=== PATIENT | male | born 1955 | race Asian ===

== ENCOUNTER 2022-12-13 16:30 | Inpatient (IN) | payer OTHER ==
[~2022-12-13] VITALS: Ht 157.5 cm; Wt 47.2 kg
--- NOTE | 2022-12-13 16:40 | NUR ---
RECIVED PT 67 YRS MALE TRANSFER FROM [facility] after completed TX FOR evaluation unable to tacare of him self
--- NOTE | 2022-12-13 16:50 | NUR ---
at bed side
--- NOTE | 2022-12-13 17:00 | NUR ---
PT confused try to GOT out of BED sitter at bed side
--- NOTE | 2022-12-13 17:30 | NUR ---
I&o catheter done UA sent to lab and COVID SWAP SENT TO LAB
[2022-12-13] MEDS ORDERED: diphenhydrAMINE HCL 50 MG/ML VIAL ONE (17:56)
[2022-12-13] MEDS ORDERED: OLANZAPINE 10 MG VIAL IM ONE ×2 (17:56→18:00)
[2022-12-13] MEDS ORDERED: diphenhydrAMINE HCL 50 MG/ML VIAL IM ONE (18:00)
[2022-12-13 18:05] LABS: BASOPHILS # (AUTO) 0.1 K/uL (0.0-0.2); BASOPHILS % (AUTO) 0.5 % (0.0-2.0); EOSINOPHILS % (AUTO) 0.3 % (0.0-6.0); HEMATOCRIT 40 % (39-51); HEMOGLOBIN 12.5 g/dL (13.5-17.5); LYMPHOCYTES # (AUTO) 2.3 K/uL (0.8-4.8); LYMPHOCYTES % (AUTO) 19.8 % (20.0-44.0); MEAN CORPUSCULAR HGB CONC 31 g/dl (31.0-36.0); MEAN CORPUSCULAR VOLUME 81 fL (80-96); MONOCYTES # (AUTO) 0.6 K/uL (0.1-1.30); MONOCYTES % (AUTO) 5.4 % (2.0-12.0); NEUTROPHILS # (AUTO) 8.7 K/uL (1.8-8.9); PLATELET COUNT (AUTO) 549 K/uL (150-450); WHITE BLOOD COUNT (AUTO) 11.8 K/uL (4.3-11.0)
[2022-12-13 18:26] LABS: CALCIUM, SERUM 9.3 mg/dL (8.5-10.1); CARBON DIOXIDE 22 mmol/L (21-32); CHLORIDE 96 mmol/L (98-107); CREATININE 0.9 mg/dL (0.6-1.3); GLUCOSE 113 mg/dL (74-106); POTASSIUM 3.9 mmol/L (3.5-5.1); SODIUM SERUM 133 mmol/L (136-145); UREA NITROGEN, BLOOD 23 mg/dL (7-18)
[2022-12-13 18:39] LABS: ALANINE AMINOTRANSFERASE 46 U/L (12-78); ALBUMIN 3.7 g/dL (3.4-5.0); ALKALINE PHOSPHATASE 257 U/L (46-116); ASPARTATE AMINOTRANSFERASE 78 U/L (15-37); BILIRUBIN,DIRECT 0.3 mg/dL (0.0-0.2); BILIRUBIN,TOTAL 0.8 mg/dL (0.2-1.0); TOTAL PROTEIN, SERUM 7.8 g/dL (6.4-8.2)
--- NOTE | 2022-12-13 18:52 | NUR ---
PT CONFUSED AND High risk fall
[2022-12-13] MEDS ORDERED: IV NS 0.9% 1,000 ML IV ONE (19:00)
--- NOTE | 2022-12-13 19:26 | NUR ---
SUSHIL LLAMAS RN
--- NOTE | 2022-12-13 21:45 | NUR ---
CALLED ESTEPHANIE JOE REGARDING D/C AWAITING CALL BACK FROM BARTOLOME GALINDO GRINDER OPERATOR SURFACE TOOL
--- NOTE | 2022-12-13 21:51 | NUR ---
[facility] CALLED FOR BLS GOING BACK TO SNF PER JOEL ETA 1 HOUR
--- NOTE | 2022-12-13 22:00 | NUR ---
JOSE FROM [facility] CALLED BACK THAT PT IS STILL TO BE ADMITTED BUT SINCE PATIENT IS COVID POSITIVE HE WONT BE ADMITTED BECAUSE THEY DONT HAVE AN ISOLATION ROOM.
[2022-12-13] MEDS ORDERED: LIDOCAINE 2%-EPI 1:100,000 30 ML VIAL ONE (22:16)
[2022-12-13] MEDS ORDERED: HALOPERIDOL LACTATE INJ 5 MG/ML VIAL ONE (22:17)
[2022-12-13] MEDS ORDERED: LORAZEPAM INJ 2 MG/ML VIAL ONE (22:18)
[2022-12-13] MEDS ORDERED: LORAZEPAM INJ 2 MG/ML VIAL IV ONE (22:30)
[2022-12-13] MEDS ORDERED: LIDOCAINE 1%-EPI 1:100,000 20 ML VIAL TP ONE (22:30)
[2022-12-13] MEDS ORDERED: HALOPERIDOL LACTATE INJ 5 MG/ML VIAL IM ONE (22:30)
--- NOTE | 2022-12-13 22:44 | NUR ---
DR DORI HU AT PT'S BEDSIDE FOR SUTURES LAC TO FOREHEAD
[2022-12-14] MEDS ORDERED: IV NS 0.9% 1,000 ML IV PRN (02:00)
[2022-12-14] MEDS ORDERED: Z GUARD REMEDY 4 OZ OINT TP PRN (02:00)
[2022-12-14] MEDS ORDERED: MAG HYDROX/AL HYDROX/SIMETH 30 ML UDC PO PRN (02:00)
[2022-12-14] MEDS ORDERED: TEMAZEPAM 15 MG CAPSULE PO PRN (02:00)
[2022-12-14] MEDS ORDERED: ONDANSETRON HCL/PF 4 MG/2 ML VIAL IVP PRN (02:00)
[2022-12-14] MEDS ORDERED: MAGNESIUM HYDROXIDE 30 ML UDC PO PRN (02:00)
--- NOTE | 2022-12-14 03:35 | NUR ---
REPORT GIVEN TO ALCIRA GALINDO
--- NOTE | 2022-12-14 03:52 | NUR ---
PT TRANSFERRING TO [facility]IA [facility] PROTOCOL. VSS. ALL BELONGINGS WITH PT
--- NOTE | 2022-12-14 04:36 | NUR ---
SUPERVISOR OFFSET PLATE PREPARATIONPRINT PRODUCTION MANAGER NOTES: RECEIVED PATIENT FROM ER VIA [facility] ON STABLE CONDITION, PLACED COMFORTABLY IN ROOM , V/S ARE WITHIN NORMAL RANGE, PATIENT WAS SLEEPY AND UNABLE TO RESPONSE TO QUESTION, SKIN ASSESSMENT DONE AND DOCUMENTED, INVENTORIES DONE, PATIENT ON TELE MONITOR SR-80 NO SYMPTOMS WAS OBSERVED, IV LINE AT PLC793 WITH ONGOING 0.9NSS@75ML/HR INFUSING WELL, PATIENT KEPT CLEAN AND DRY ALL NEEDS MET ON MIONITORING DUE TO RISK FOR FALL, WILL CONTINUE TO MONITOR.
[2022-12-14 04:40] VITALS: BP 155/89
--- NOTE | 2022-12-14 06:28 | NUR ---
PLUMBER GASFITTER CLOSING NOTES: PATIENT SLEEP IN BED COMFORTABLY, BED IN LOW POSITION CALL LIGHTS WITHIN REACH, NO COMPLAIN OF PAIN AND DISCOMFORT AT THIS TIME, ON ROOM AIR SATURATING WELL, PATIENT IS SLEEPY BUT AROUSABLE TO TACTILE STIMULI, ON TELE MONITOR- SR-78, PATIENT ON MONITOR DUE TO RISK OF FALL, PATIENT KEPT CLEAN AND DRY ALL NEEDS MET ENDORSE TO INCOMING SHIFT.
--- NOTE | 2022-12-14 07:25 | NUR ---
RN OPENING NOTE PT ALERT AND ORIENTED X1. PT IS CONFUSED, RESTLESS AT TIMES. PT ON ROOM AIR TOLERATING AT 100%. PT ON TELE MONITOR SINUS RHYTM. ALL SAFETY MEASURES IN PLACE. CALL LIGHT WITHIN REACH. BED LOCKED AT LOWEST POSITION.BED ALARM ON. SIDE RAILS UP X4.PT IS HIGH RISK FOR FALLS.
[2022-12-14] MEDS: PANTOPRAZOLE 40 MG TABLET.DR PO SCH (07:30)
[2022-12-14 08:00] VITALS: BP 125/82
[2022-12-14] MEDS: QUETIAPINE FUMARATE 25 MG TABLET PO SCH ×2 (09:00→16:18)
[2022-12-14] MEDS ORDERED: DASA70TA PO (09:10)
[2022-12-14] MEDS ORDERED: MELA5TAB PO (09:10)
[2022-12-14] MEDS ORDERED: CABO40TA PO (09:10)
[2022-12-14] MEDS ORDERED: LEVE500T20 PO (09:10)
[2022-12-14] MEDS ORDERED: METF-440 PO (09:10)
[2022-12-14] MEDS ORDERED: ACET325T53 PO (09:10)
[2022-12-14] MEDS ORDERED: CHOL200013 PO (09:10)
[2022-12-14] MEDS ORDERED: OMEP40CA21 PO (09:10)
[2022-12-14] MEDS ORDERED: ATOR20TA PO (09:10)
[2022-12-14] MEDS ORDERED: DEXA4TAB PO (09:10)
--- NOTE | 2022-12-14 11:20 | NUR ---
SS Note: SS consult requested for SNF placement. Per case management note pt. will be discharging to [facility] when medically cleared. Cm to follow up with transportation arrangements.
[2022-12-14 12:00] VITALS: BP 176/132
--- NOTE | 2022-12-14 12:00 | NUR ---
rn note notified of high bp 172/114. aware asked for restraints.
[2022-12-14 16:00] VITALS: BP_SYST 151; BP_SYST 176; BP_DIAS 132; BP_DIAS 86
--- NOTE | 2022-12-14 16:00 | NUR ---
rn note notified of high bp 172/114. no orders given at this time
--- NOTE | 2022-12-14 18:30 | NUR ---
RN NOTE NOTIFIED DR. SIFUENTES THAT PT IS CONFUSED,RESTLESS, TRIES TO GET OUT OF BED AND IF RESTRAINTS CAN BE ORDERED. RECOMMENDED SITTER. CALLED NURSING MATERIAL ATTENDANT. SITTER IS NOT AVAILABLE AT THIS TIME. RELAYED TO DR. SIFUENTES AND ASKED IF RESTRAINTS OKAY TO ORDER. SAID OK TO ORDER SOFT BILATERAL WRIST RESTRAINTS.
--- NOTE | 2022-12-14 19:40 | NUR ---
RN NOTE NOTIFIED DR. SIFUENTES OF C REACTIVE PROTEIN 6.3 MD AWARE
[2022-12-14 20:00] VITALS: BP 142/83
--- NOTE | 2022-12-14 20:00 | NUR ---
RN CLOSING NOTE PT ASLEEP, EASILY AROUSABLE. alert abnd oriented x1. pt is confused and restless at times.PT ON TELE MONITOR SR. PT IS ON SOFT BILATERAL WRIST RESTRAINTS. NO SKIN OR CIRCULATION ISSUES NOTED AT THIS TIME. PT HAS LEFT IV. IV INTACT, PATENT AND FLUSHING WELL. ALL SAFETY MEASURES IN PLACE. CALL LIGHT WITHIN REACH. pt is currently npo due to high risk for falls and altered level of consciousness. BED LOCKED AT LOWEST POSITION. SIDE RAILS UP X4.bed alarm on. PT IS COVID ISOLATION. PT IS HIGH RISK FOR FALLS.
[2022-12-15 04:00] VITALS: BP 143/87
[2022-12-15] MEDS: PANTOPRAZOLE 40 MG TABLET.DR PO SCH ×2 (07:30→07:35)
[2022-12-15 07:41] LABS: BASOPHILS % (AUTO) 0.3 % (0.0-2.0); EOSINOPHILS % (AUTO) 2.1 % (0.0-6.0); HEMATOCRIT 34 % (39-51); HEMOGLOBIN 10.5 g/dL (13.5-17.5); LYMPHOCYTES # (AUTO) 1.3 K/uL (0.8-4.8); LYMPHOCYTES % (AUTO) 10.6 % (20.0-44.0); MEAN CORPUSCULAR HGB CONC 31 g/dl (31.0-36.0); MEAN CORPUSCULAR VOLUME 83 fL (80-96); MONOCYTES # (AUTO) 0.7 K/uL (0.1-1.30); MONOCYTES % (AUTO) 5.6 % (2.0-12.0); NEUTROPHILS # (AUTO) 10.2 K/uL (1.8-8.9); NEUTROPHILS % (AUTO) 81.4 % (43.0-81.0); PLATELET COUNT (AUTO) 387 K/uL (150-450); RED BLOOD CELL COUNT(AUTO) 4.04 MIL/uL (4.5-6.0); WHITE BLOOD COUNT (AUTO) 12.6 K/uL (4.3-11.0)
[2022-12-15 08:00] VITALS: BP 164/93
[2022-12-15] MEDS: QUETIAPINE FUMARATE 25 MG TABLET PO SCH ×3 (08:09→16:53)
[2022-12-15 08:17] LABS: CREATININE 0.5 mg/dL (0.6-1.3); MAGNESIUM 2.3 mg/dL (1.8-2.4); PHOSPHORUS 2.2 mg/dL (2.5-4.9)
[2022-12-15 08:24] LABS: CALCIUM, SERUM 8.1 mg/dL (8.5-10.1)
--- NOTE | 2022-12-15 09:00 | NUR ---
NPO DUE TO PATIENT HAS NO GAG REFLEX PER SPEECH THERAPIST THAT DID SWALLOW EVALUATION. NOTIFIED CHARGE NURSE AND MD AWARE, ST RECOMMENDED TO HAVE ANOTHER TEST TOMORROW
[2022-12-15 12:00] VITALS: BP 134/77
[2022-12-15] MEDS: IV D5/ 0.9% NACL 1,000 ML IV PRN (12:09)
--- NOTE | 2022-12-15 14:26 | NUR ---
CHECK BLOOD SUGAR 69, RECHECKED AFTER 5 MINUTES , BLOOD SUGAR 100.
[2022-12-15 16:00] VITALS: BP 146/80
[2022-12-15] MEDS ORDERED: Sodium Phosphate 15 MMOL in IV NS 0.9% 245 ML IV SCH (16:30)
--- NOTE | 2022-12-15 19:30 | NUR ---
DIAMOND DIE DRILLER OPENING NOTE PATIENT SLEEPING IN BED, PATIENT AROUSABLE, A/O X 0-1, PORTUGUESE SPEAKING. PATIENT STABLE ON RA, NO S/S OF DISTRESS OR SOB NOTED, BREATHING EVEN AND UNLABORED. PATIENT ON EXTERNAL RELEASE ENGINEER READING SINUS RHYTHM, HR: 67. BILATERAL SOFT WRIST RESTRAINTS IN PLACE, RELEASED AND CHECKED CIRCULATION. PATIENT NPO D/T FAILING SWALLOW EVAL. IV ACCESS ON LFA #20G INTACT AND INFUSING D5NS @ 75 ML/HR. SAFETY MEASURES IN PLACE: CALL LIGHT WITHIN REACH, SIDE RAILS UP X 3, BED LOCKED IN LOWEST POSITION, HOB ELEVATED, BED ALARM ON. DROPLET PRECAUTIONS IN PLACE. WILL CONTINUE TO MONITOR PATIENT
--- NOTE | 2022-12-15 19:41 | NUR ---
PATIENT IS AWAKE, ALERT
[2022-12-15 20:00] VITALS: BP 159/84
[2022-12-15] MEDS ORDERED: DEXTROSE 50%-WATER 50 ML DISP.SYRIN IV PRN (22:30)
[2022-12-16] VITALS: BP 152/79
[2022-12-16] MEDS: BLOOD SUGAR DIAGNOSTIC 1 EACH STRIP IN SCH ×4 (00:24→17:32)
[2022-12-16] MEDS: IV D5/ 0.9% NACL 1,000 ML IV PRN ×2 (02:07→16:01)
[2022-12-16 04:00] VITALS: BP 152/72
--- NOTE | 2022-12-16 06:11 | NUR ---
MACHINE LEARNING INTERN CLOSING NOTE PATIENT SLEEPING IN BED, PATIENT AROUSABLE, A/O X 0-1, MACEDONIAN SPEAKING. PATIENT STABLE ON RA, NO S/S OF DISTRESS OR SOB NOTED, BREATHING EVEN AND UNLABORED. PATIENT ON EXTERNAL ADJUNCT FACULTY FOR MEDICAL TERMINOLOGY READING SINUS RHYTHM, HR: 71. BILATERAL SOFT WRIST RESTRAINTS IN PLACE, RELEASED AND CHECKED CIRCULATION. PATIENT KEPT NPO D/T FAILING SWALLOW EVAL, BLOOD SUGAR WNL THIS SHIFT. IV ACCESS ON LFA #20G INTACT AND INFUSING D5NS @ 75 ML/HR. NO SIGNIFICANT CHANGES THIS SHIFT, PT SLEPT WELL THROUGHOUT THE NIGHT. SAFETY MEASURES IN PLACE: CALL LIGHT WITHIN REACH, SIDE RAILS UP X 3, BED LOCKED IN LOWEST POSITION, HOB ELEVATED, BED ALARM ON. DROPLET PRECAUTIONS IN PLACE. WILL ENDORSE TO DAYSHIFT RN FOR CONTINUITY OF CARE
[2022-12-16] MEDS: PANTOPRAZOLE 40 MG TABLET.DR PO SCH (07:30)
--- NOTE | 2022-12-16 07:48 | NUR ---
PATIENT STILL NPO INCLUDING MEDICATIONS
[2022-12-16 08:00] VITALS: BP 159/77
[2022-12-16] MEDS: QUETIAPINE FUMARATE 25 MG TABLET PO SCH ×2 (09:00→16:47)
[2022-12-16 09:07] LABS: BASOPHILS # (AUTO) 0.1 K/uL (0.0-0.2); BASOPHILS % (AUTO) 0.4 % (0.0-2.0); EOSINOPHILS % (AUTO) 2.7 % (0.0-6.0); HEMATOCRIT 36 % (39-51); HEMOGLOBIN 11.4 g/dL (13.5-17.5); LYMPHOCYTES % (AUTO) 8.8 % (20.0-44.0); MEAN CORPUSCULAR HGB CONC 32 g/dl (31.0-36.0); MEAN CORPUSCULAR VOLUME 82 fL (80-96); MONOCYTES # (AUTO) 0.7 K/uL (0.1-1.30); MONOCYTES % (AUTO) 5.9 % (2.0-12.0); NEUTROPHILS # (AUTO) 9.6 K/uL (1.8-8.9); NEUTROPHILS % (AUTO) 82.2 % (43.0-81.0); PLATELET COUNT (AUTO) 400 K/uL (150-450); RED BLOOD CELL COUNT(AUTO) 4.38 MIL/uL (4.5-6.0); WHITE BLOOD COUNT (AUTO) 11.7 K/uL (4.3-11.0)
[2022-12-16 09:09] LABS: CREATININE 0.4 mg/dL (0.6-1.3); MAGNESIUM 2.1 mg/dL (1.8-2.4); PHOSPHORUS 1.8 mg/dL (2.5-4.9); POTASSIUM 3.2 mmol/L (3.5-5.1)
--- NOTE | 2022-12-16 10:30 | NUR ---
OPENING NOTE PATIENT SLEEPING IN BED, PATIENT AROUSABLE, A/O X 0-1, MALTESE SPEAKING. PATIENT STABLE ON RA, NO S/S OF DISTRESS OR SOB NOTED, BREATHING EVEN AND UNLABORED. PATIENT ON EXTERNAL TOOL SHAPER SETUP OPERATOR READING, BILATERAL SOFT WRIST RESTRAINTS IN PLACE, RELEASED AND CHECKED CIRCULATION. PATIENT NPO D/T FAILING SWALLOW EVAL. IV ACCESS ON LFA #20G INTACT AND INFUSING D5NS @ 75 ML/HR. SAFETY MEASURES IN PLACE: CALL LIGHT WITHIN REACH, SIDE RAILS UP X 3, BED LOCKED IN LOWEST POSITION, HOB ELEVATED, BED ALARM ON. DROPLET PRECAUTIONS IN
--- NOTE | 2022-12-16 10:56 | NUR ---
INFORMED DR SIFUENTES REGARDING K-3.2 TODAY.
[2022-12-16 12:00] VITALS: BP 149/70
[2022-12-16 16:00] VITALS: BP 152/75
[2022-12-16] MEDS ORDERED: Sodium Phosphate 15 MMOL in IV NS 0.9% 245 ML IV SCH (16:30)
--- NOTE | 2022-12-16 19:00 | NUR ---
PATIENT IS RESTING IN BED COMFORTABLE, VITAL SIGNS ARE STABLE, PT IS CONFUSE, NO SIGNS OF IN DISTRESS, UNLABORED BREATHING ON ROOM AIR, SOFT BILATERAL RESTRAINTS ARE ON, SAFETY MEASURES APPLIED, BED IN LOW POSITION, SIDE RAILS UPX2, CALL LIGHT WITHIN REACH.
[2022-12-16 20:00] VITALS: BP 123/56
[2022-12-16] MEDS: POTASSIUM CL. PREMIX PERIPHER. 50 ML IV SCH ×3 (21:03→23:06)
[2022-12-17] VITALS: BP 136/88
[2022-12-17] MEDS: POTASSIUM CL. PREMIX PERIPHER. 50 ML IV SCH ×3 (00:16→13:26)
[2022-12-17] MEDS: BLOOD SUGAR DIAGNOSTIC 1 EACH STRIP IN SCH ×5 (00:16→23:49)
[2022-12-17 04:00] VITALS: BP 142/78
[2022-12-17 06:28] LABS: BASOPHILS # (AUTO) 0.1 K/uL (0.0-0.2); BASOPHILS % (AUTO) 0.5 % (0.0-2.0); EOSINOPHILS % (AUTO) 2.8 % (0.0-6.0); HEMATOCRIT 32 % (39-51); HEMOGLOBIN 10.6 g/dL (13.5-17.5); LYMPHOCYTES # (AUTO) 0.7 K/uL (0.8-4.8); LYMPHOCYTES % (AUTO) 6.3 % (20.0-44.0); MEAN CORPUSCULAR HGB CONC 33 g/dl (31.0-36.0); MEAN CORPUSCULAR VOLUME 80 fL (80-96); MONOCYTES # (AUTO) 0.5 K/uL (0.1-1.30); NEUTROPHILS # (AUTO) 9.4 K/uL (1.8-8.9); NEUTROPHILS % (AUTO) 85.4 % (43.0-81.0); PLATELET COUNT (AUTO) 395 K/uL (150-450)
[2022-12-17 06:40] LABS: CREATININE 0.4 mg/dL (0.6-1.3); POTASSIUM 3.4 mmol/L (3.5-5.1)
--- NOTE | 2022-12-17 07:17 | NUR ---
PACKAGE COLLECTOR OPENING NOTES: RECEIVED PATIENT IN BED, ASLEEP BUT EASILY AROUSES TO VOICE AND TACTILE STIMULI. PATIENT IS ALERT BUT WITH PERIODS OF CONFUSION. NO SOB NOTED, BREATHING EVEN AND UNLABORED. ON RA WITH OXYGEN SATURATION OF 99%. ON SR WITH HR OF 91 PER TELE MONITOR. IV FLUID RUNNING ON LEFT FOREARM OF D5NS @ 75 ML/HR, NO S/S INFILTRATION AND NO REDNESS NOTED ON THE SITE. DRESSING ON LEFT FOREHEAD INTACT, DRESSING CLEAN AND DRY. NOTED WITH BILATERAL SOFT WRIST RESTRAINTS, NOTED WITH GOOD HAND CIRCULATION AND GOOD CAPILLARY REFILL. ALL SAFETY MEASURES IN PLACE. BED LOCKED AND IN LOWEST POSITION WITH BED ALARM ON. CALL LIGHT WITHIN REACH. WILL CONTINUE TO MONITOR PATIENT THROUGHOUT SHIFT.
[2022-12-17 08:00] VITALS: BP 146/78
[2022-12-17] MEDS: PANTOPRAZOLE 40 MG VIAL IV SCH (08:57)
[2022-12-17] MEDS: QUETIAPINE FUMARATE 25 MG TABLET PO SCH ×2 (09:00→17:00)
[2022-12-17 12:00] VITALS: BP 133/67
--- NOTE | 2022-12-17 12:00 | NUR ---
THOMAS SPEECH THERAPIST CAME BY AND EVALUATED PATIENT AND STATED THAT THE PATENT IS NOT ABLE TO SWALLOW, HIGH RISK FOR ASPIRATION.
[2022-12-17] MEDS: IV D5/ 0.9% NACL 1,000 ML IV PRN (13:00)
[2022-12-17] MEDS ORDERED: Sodium Phosphate 15 MMOL in IV NS 0.9% 245 ML IV SCH (14:00)
[2022-12-17 16:00] VITALS: BP 159/70
--- NOTE | 2022-12-17 18:45 | NUR ---
LOAN INSPECTOR CLOSING NOTES: PATIENT IN BED, ASLEEP BUT EASILY AROUSES TO SOUND AND TOUCH. NO RESPIRATORY DISTRESS NOTED THROUGHOUT SHIFT. PATIENT IS ALERT BUT WITH PERIODS OF CONFUSION. ON RA WITH OXYGEN SATURATION OF 99%. ON ST WITH HR OF 113 PER TELE MONITOR. PATIENT HAS IV ACCESS ON LEFT FOREARM RUNNING WITH D5NS @ 75 ML/HR, SITE PATENT, NO S/S INFILTRATION AND NO REDNESS NOTED ON THE SITE. DRESSING ON LEFT FOREHEAD INTACT, DRESSING CLEAN AND DRY. NOTED WITH GOOD HAND CIRCULATION AND GOOD CAPILLARY REFILL, RELEASED AND EXERCISED EVERY HOUR. ALL SAFETY MEASURES IMPLEMENTED. BED LOCKED AND IN LOWEST POSITION WITH BED ALARM ON. CALL LIGHT WITHIN REACH. PATIENT REMAINS NPO SAFETY PRECAUTION. WILL ENDORSE TO INCOMING NURSE FOR CONTINUITY OF CARE.
--- NOTE | 2022-12-17 19:51 | NUR ---
RN OPENING NOTE PATIENT ASLEEP IN BED. NO S/S OF DISTRESS, BREATHING WITHOUT DIFFICULTY ON ROOM AIR. LFA #20 INTACT AND PATENT W/ D5NS 75ML/HR. TELE READS AFIB 90. SAFETY MEASURES IN PLACE: BED LOCKED AND AT LOWEST POSITION, RAILS UP X2, CALL SANTAMARIA WITHIN REACH. WILL CONTINUE TO MONITOR PATIENT.
[2022-12-17 20:00] VITALS: BP 155/88
[2022-12-17] MEDS: INSULIN REGULAR, HUMAN 100 UNIT/ML 3 ML VIAL SQ PRN (23:49)
[2022-12-18 01:09] VITALS: BP 148/85
[2022-12-18 04:00] VITALS: BP 159/88
[2022-12-18] MEDS: IV D5/ 0.9% NACL 1,000 ML IV PRN ×2 (05:09→19:50)
[2022-12-18] MEDS: INSULIN REGULAR, HUMAN 100 UNIT/ML 3 ML VIAL SQ PRN ×2 (05:22→17:51)
[2022-12-18] MEDS: BLOOD SUGAR DIAGNOSTIC 1 EACH STRIP IN SCH ×3 (05:22→17:52)
--- NOTE | 2022-12-18 06:38 | NUR ---
RN CLOSING NOTE PATIENT ASLEEP IN BED. A/OX0. NO S/S OF DISTRESS, BREATHING WITHOUT DIFFICULTY ON ROOM AIR. LFA #20 INTACT AND PATENT W/ D5NS 75ML/HR. TELE READS SR 90. SAFETY MEASURES IN PLACE: BED LOCKED AND AT LOWEST POSITION, RAILS UP X3, CALL SANTAMARIA WITHIN REACH. WILL ENDORSE TO NEXT SHIFT FOR BLAKE.
--- NOTE | 2022-12-18 07:15 | NUR ---
GAS ADJUSTER OPENING NOTES: RECEIVED PATIENT IN BED, ASLEEP BUT EASILY AROUSES TO SOUND AND TACTILE STIMULI. PATIENT IS ALERT BUT WITH CONFUSION. NO RESPIRATORY DISTRESS NOTED, ON RA WITH OXYGEN SATURATION OF 96%. ON SR PER TELE MONITOR WITH HR OF 96. D5NS RUNNING @ 75ML/HR VIA LEFT FOREARM, NO REDNESS NOTED ON THE SITE. DRESSING ON LEFT FOREHEAD INTACT, CLEAN AND DRY. PATIENT WITH BILATERAL SOFT WRIST RESTRAINTS, NOTED WITH GOOD HAND CIRCULATION AND GOOD CAPILLARY REFILL, WILL RELEASE AND EXERCISE EXTREMITIES ORDERED. ALL SAFETY MEASURES IN PLACE. BED LOCKED AND IN LOWEST POSITION WITH BED ALARM ON. CALL LIGHT WITHIN REACH. WILL CONTINUE TO MONITOR PATIENT THROUGHOUT SHIFT.
[2022-12-18 07:23] LABS: BASOPHILS % (AUTO) 0.3 % (0.0-2.0); HEMATOCRIT 32 % (39-51); HEMOGLOBIN 10.4 g/dL (13.5-17.5); LYMPHOCYTES # (AUTO) 1.2 K/uL (0.8-4.8); LYMPHOCYTES % (AUTO) 10.3 % (20.0-44.0); MEAN CORPUSCULAR HGB CONC 32 g/dl (31.0-36.0); MEAN CORPUSCULAR VOLUME 80 fL (80-96); MONOCYTES # (AUTO) 0.6 K/uL (0.1-1.30); MONOCYTES % (AUTO) 5.7 % (2.0-12.0); NEUTROPHILS # (AUTO) 9.3 K/uL (1.8-8.9); NEUTROPHILS % (AUTO) 81.7 % (43.0-81.0); PLATELET COUNT (AUTO) 428 K/uL (150-450); RED BLOOD CELL COUNT(AUTO) 4.02 MIL/uL (4.5-6.0); WHITE BLOOD COUNT (AUTO) 11.4 K/uL (4.3-11.0)
[2022-12-18 07:43] LABS: CREATININE 0.5 mg/dL (0.6-1.3); MAGNESIUM 1.9 mg/dL (1.8-2.4); PHOSPHORUS 1.8 mg/dL (2.5-4.9); POTASSIUM 3.4 mmol/L (3.5-5.1)
[2022-12-18 08:00] VITALS: BP 148/52
[2022-12-18] MEDS: PANTOPRAZOLE 40 MG VIAL IV SCH (08:15)
[2022-12-18] MEDS: QUETIAPINE FUMARATE 25 MG TABLET PO SCH ×2 (08:16→16:42)
--- NOTE | 2022-12-18 10:27 | NUR ---
NURSE JENNIFER PLACED IV MIDLINE ON PATIENT'S RIGHT UPPER ARM, PATENT INTACT AND FLUSHES WELL.
[2022-12-18] MEDS: POTASSIUM PHOSPHATE MM 7.5 MMOL in IV NS 0.9% 100 ML IV SCH ×2 (10:48→14:00)
[2022-12-18 12:00] VITALS: BP 160/72
--- NOTE | 2022-12-18 12:58 | NUR ---
INSERTED NG TUBE FAROESE [address] MOSER NOTIFIED WITH AN ORDER FOR STAT CXR FOR PROPER PLACEMENT
--- NOTE | 2022-12-18 12:58 | NUR ---
TUBE PLACED IN LEFT NARE AND SECURED WITH A TAPE
--- NOTE | 2022-12-18 14:29 | NUR ---
DR MOSER NOTIFIED OF CXR RESULT FOLLOWS: ENTERIC TUBE IN STOMACH, NO EVIDENCE OF ACUTE DISEASE. DOCTOR WITH AN ORDER TO USE NGT. CONTACTED [employer] AND INFORMED REGARDING THE DOCTOR'S ORDER AND WILL CONTACT US BACK
--- NOTE | 2022-12-18 15:41 | NUR ---
CALLED PATIENT'S SON CANDICE @ AND INFORMED REGARDING NG TUBE PLACED ON THE PATIENT DUE TO HIGH RISK FOR ASPIRATION AND PATIENT FAILED SWALLOWING EVALUATION. ALSO UPDATED OF PATIENT'S CURRENT CONDITION. PATIENT'S SON AGREED AND UNDERSTOOD AND HAS NO FURTHER QUESTIONS OR CONCERNS AT THIS TIME
--- NOTE | 2022-12-18 15:56 | NUR ---
RECEIVED A CALL FROM MIHAI FROM [facility] WITH RECOMMENDATION FOR G-TUBE FEEDING. DR MOSER MADE AWARE AND ORDERED JEVITY 1.2 @ 20 ML/HR. ORDER NOTED AND CARRIED OUT.
[2022-12-18 16:00] VITALS: BP 159/80
[2022-12-18] MEDS ORDERED: JEVITY 1.2 CAL 1,000 ML BOTTLE GT PRN ×2 (16:00→16:39)
--- NOTE | 2022-12-18 17:32 | NUR ---
STARTED NG TUBE FEEDING OF JEVITY 1.2 @ 20 ML/HR, NG-TUBE IN PLACE, WITH NO RESIDUAL NOTED, FLUSHES WELL. HOB KEPT ELEVATED. WILL CONTINUE TO MONITOR PATIENT
--- NOTE | 2022-12-18 18:47 | NUR ---
REVIEW ENGINEER CLOSING NOTES: PATIENT IN BED, ASLEEP BUT EASILY AROUSES TO VOICE AND TACTILE STIMULI. NO RESPIRATORY DISTRESS NOTED THROUGHOUT SHIFT. ON RA WITH OXYGEN SATURATION OF 98%. ON SR WITH HR OF 81 PER TELE MONITOR. IV ACCESS ON LEFT FOREARM RUNNING WITH D5NS @ 75 ML/HR, SITE PATENT AND NO S/S INFILTRATION NOTED ON THE SITE. DRESSING CLEAN AND DRY ON LEFT FOREHEAD. NG-TUBE INTACT ON LEFT NARE, IN PLACE, NO RESIDUAL NOTED, FLUSHES WELL. ON NG TUBE FEEDING OF JEVITY 1.2 @ 20 ML/HR ORDERED, TOLERATED IT WELL. NOTED WITH GOOD CAPILLARY REFILL ON BILATERAL HANDS. ALL SAFETY MEASURES IMPLEMENTED. BED LOCKED AND IN LOWEST POSITION WITH BED ALARM ON. HOB KEPT ELEVATED. CALL LIGHT WITHIN REACH. WILL ENDORSE TO INCOMING NURSE FOR CONTINUITY OF CARE.
--- NOTE | 2022-12-18 19:45 | NUR ---
SURGICAL TERRITORY MANAGER OPENING NOTES PT IN BED, ASLEEP BUT EASY TO AROUSE, ON RA WITH O2 SAT OF 98%, NO SOB/DISTRESS NOTED. ON TELE SR WITH HR OF 95. IV ACCESS ON LEFT FOREARM INTACT AND PATENT, D5NS INFUSING @ 75 ML/HR. HAS LEFT FOREHEAD LACERATION, DRESSING IS CLEAN AND DRY. NGTF RUNNING JEVITY 1.2 @ 20 ML/HR, INTACT ON LEFT NARE, NO RESIDUAL NOTED, FLUSHES WELL. SAFETY MEASURES IN PLACE: BED LOCKED AND IN LOWEST POSITION WITH BED ALARM ON, HOB KEPT ELEVATED, SIDE RAILS UP X3, CALL LIGHT WITHIN REACH. WILL CONTINUE TO MONITOR.
[2022-12-18 20:00] VITALS: BP 149/85
[2022-12-19] VITALS: BP 164/90
[2022-12-19] MEDS: BLOOD SUGAR DIAGNOSTIC 1 EACH STRIP IN SCH ×5 (00:22→23:40)
[2022-12-19] MEDS: INSULIN REGULAR, HUMAN 100 UNIT/ML 3 ML VIAL SQ PRN ×4 (00:25→19:07)
[2022-12-19 04:00] VITALS: BP 163/83
--- NOTE | 2022-12-19 06:00 | NUR ---
RN NOTES: PT BP INCREASED TO 163/83, PULSE- 85. NOTIFIED DR. SKY. ORDERED- NORVASC 5 MG TAB IN THE MORNING. NOTED AND CARRIED OUT.
[2022-12-19 06:40] LABS: BASOPHILS # (AUTO) 0.1 K/uL (0.0-0.2); BASOPHILS % (AUTO) 0.5 % (0.0-2.0); EOSINOPHILS % (AUTO) 1.6 % (0.0-6.0); HEMATOCRIT 32 % (39-51); HEMOGLOBIN 10.4 g/dL (13.5-17.5); LYMPHOCYTES # (AUTO) 1.1 K/uL (0.8-4.8); LYMPHOCYTES % (AUTO) 8.4 % (20.0-44.0); MEAN CORPUSCULAR HGB CONC 33 g/dl (31.0-36.0); MEAN CORPUSCULAR VOLUME 79 fL (80-96); MONOCYTES # (AUTO) 0.8 K/uL (0.1-1.30); MONOCYTES % (AUTO) 6.3 % (2.0-12.0); NEUTROPHILS # (AUTO) 10.7 K/uL (1.8-8.9); NEUTROPHILS % (AUTO) 83.2 % (43.0-81.0); PLATELET COUNT (AUTO) 407 K/uL (150-450); RED BLOOD CELL COUNT(AUTO) 4.02 MIL/uL (4.5-6.0); WHITE BLOOD COUNT (AUTO) 12.9 K/uL (4.3-11.0)
--- NOTE | 2022-12-19 07:05 | NUR ---
INTERNAL CORROSION SPECIALIST CLOSING NOTES PT IN BED, ASLEEP BUT AROUSABLE, ON RA WITH O2 SAT OF 100%, NO SOB/DISTRESS NOTED. ON TELE SR WITH HR OF 85. IV ACCESS ON LEFT FOREARM INTACT AND PATENT, D5 NS INFUSING @ 75 ML/HR. HAS LEFT FOREHEAD LACERATION, DRESSING IS CLEAN AND DRY. NGTF RUNNING JEVITY 1.2 @ 20 ML/HR, INTACT ON LEFT NARE, NO RESIDUAL NOTED, FLUSHES WELL. ALL DUE MEDS WERE GIVEN AND NEEDS ATTENDED. SAFETY MEASURES IN PLACE: BED LOCKED AND IN LOWEST POSITION WITH BED ALARM ON, HOB KEPT ELEVATED, SIDE RAILS UP X3, CALL LIGHT WITHIN REACH. WILL ENDORSE TO ONCOMING NURSE FOR BLAKE.
[2022-12-19 07:33] LABS: CREATININE 0.5 mg/dL (0.6-1.3); POTASSIUM 3.7 mmol/L (3.5-5.1)
[2022-12-19 08:00] VITALS: BP 171/83
[2022-12-19] MEDS: PANTOPRAZOLE 40 MG VIAL IV SCH (09:53)
[2022-12-19] MEDS: QUETIAPINE FUMARATE 25 MG TABLET PO SCH ×2 (09:53→18:39)
[2022-12-19] MEDS: AMLODIPINE BESYLATE 5 MG TABLET PO SCH (09:55)
[2022-12-19] MEDS: IV D5/ 0.9% NACL 1,000 ML IV PRN (09:55)
[2022-12-19 12:00] VITALS: BP 156/96
[2022-12-19 16:00] VITALS: BP 138/85
[2022-12-19 20:00] VITALS: BP 135/93
[2022-12-20] VITALS: BP 148/75
[2022-12-20 04:00] VITALS: BP 136/69
[2022-12-20] MEDS: BLOOD SUGAR DIAGNOSTIC 1 EACH STRIP IN SCH ×4 (06:31→23:50)
--- NOTE | 2022-12-20 07:05 | NUR ---
BAR HOSTESS OPENING NOTES: RECEIVED PATIENT IN BED, ASLEEP BUT EASILY RESPOND TO VERBAL AND TACTILE STIMULI. PATIENT IS ALERT BUT WITH CONFUSION. NO RESPIRATORY DISTRESS NOTED, ON RA WITH OXYGEN SATURATION OF 96%. ON SR PER TELE MONITOR . D5NS RUNNING @ 75ML/HR VIA RIGHT UPPER ARM MIDLINE, NO REDNESS NOTED ON THE SITE. DRESSING INTACT, CLEAN AND DRY. PATIENT WITH BILATERAL SOFT WRIST RESTRAINTS, NOTED WITH GOOD HAND CIRCULATION AND GOOD CAPILLARY REFILL, WILL RELEASE AND EXERCISE EXTREMITIES ORDERED. ALL SAFETY MEASURES IN PLACE. BED LOCKED AND IN LOWEST POSITION WITH BED ALARM ON. CALL LIGHT WITHIN REACH. WILL CONTINUE TO MONITOR PATIENT THROUGHOUT SHIFT.
--- NOTE | 2022-12-20 07:05 | NUR ---
GAS DISPENSER CLOSING NOTES: PATIENT IN BED, ASLEEP BUT AROUSES AT TIMES TO VOICE AND TACTILE STIMULI. NO RESPIRATORY DISTRESS NOTED THROUGHOUT SHIFT. ON RA WITH OXYGEN SATURATION OF 98%. ON SR ON TELE MONITOR. IV ACCESS ON LEFT FOREARM DRESSING CLEAN AND DRY ON LEFT FOREHEAD. NG-TUBE INTACT ON LEFT NARE, IN PLACE, NO RESIDUAL NOTED, FLUSHES WELL. ON NG TUBE FEEDING OF JEVITY 1.2 @ 50 ML/HR ORDERED, TOLERATED IT WELL. NOTED WITH GOOD CAPILLARY REFILL ON BILATERAL HANDS. ALL SAFETY MEASURES IMPLEMENTED. BED LOCKED AND IN LOWEST POSITION WITH BED ALARM ON. HOB KEPT ELEVATED. CALL LIGHT WITHIN REACH. WILL ENDORSE TO INCOMING NURSE FOR CONTINUITY OF CARE.
[2022-12-20 07:10] LABS: BASOPHILS % (AUTO) 0.3 % (0.0-2.0); HEMATOCRIT 32 % (39-51); HEMOGLOBIN 10.6 g/dL (13.5-17.5); LYMPHOCYTES # (AUTO) 1.3 K/uL (0.8-4.8); LYMPHOCYTES % (AUTO) 10.9 % (20.0-44.0); MEAN CORPUSCULAR HGB CONC 33 g/dl (31.0-36.0); MEAN CORPUSCULAR VOLUME 80 fL (80-96); MONOCYTES # (AUTO) 0.8 K/uL (0.1-1.30); MONOCYTES % (AUTO) 6.7 % (2.0-12.0); NEUTROPHILS % (AUTO) 78.1 % (43.0-81.0); PLATELET COUNT (AUTO) 416 K/uL (150-450); RED BLOOD CELL COUNT(AUTO) 4.02 MIL/uL (4.5-6.0); WHITE BLOOD COUNT (AUTO) 11.5 K/uL (4.3-11.0)
[2022-12-20 07:18] LABS: CALCIUM, SERUM 8.2 mg/dL (8.5-10.1); CREATININE 0.6 mg/dL (0.6-1.3); POTASSIUM 3.7 mmol/L (3.5-5.1)
[2022-12-20 08:00] VITALS: BP 149/98
[2022-12-20] MEDS: PANTOPRAZOLE 40 MG VIAL IV SCH (08:54)
[2022-12-20] MEDS: QUETIAPINE FUMARATE 25 MG TABLET PO SCH ×2 (08:54→17:48)
[2022-12-20] MEDS: AMLODIPINE BESYLATE 5 MG TABLET PO SCH (08:55)
[2022-12-20 12:00] VITALS: BP 144/84
[2022-12-20] MEDS: PANTOPRAZOLE 40 MG/PACK PACK GT SCH (12:00)
--- NOTE | 2022-12-20 12:15 | NUR ---
RN notes: spoke to the pharmacist protonix iv 8 am dose was given earlier today is it ok to give a dose via NGT now said no to give tomorrow,protonix order is once a day,dose via NGT not given
[2022-12-20] MEDS: INSULIN REGULAR, HUMAN 100 UNIT/ML 3 ML VIAL SQ PRN ×3 (12:45→23:51)
[2022-12-20] MEDS: JEVITY 1.2 CAL 1,000 ML BOTTLE NG PRN (12:56)
[2022-12-20 16:00] VITALS: BP 148/85
--- NOTE | 2022-12-20 16:07 | NUR ---
RN NOTES: RECEIVED A CALL FROM RADIOLOGY AND RECEIVED REPORT SHOWS multiple hemorrhagic masses within the brain with a large area of irregular gyriform hyperdensity and extensive edema centered in the region of the left posterior temporal and parietal occipital lobes. 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 Intraventricular extension of acute hemorrhage into the right lateral ventricle with diffusely mildly prominent ventricles RELAYED TO DR VELEZ HE IA AWARE SAID IS IS KNOWN WITH BRAIN METS AND HE ALSO DISCUSSED IT WITH THE SON
--- NOTE | 2022-12-20 19:30 | NUR ---
RN NOTE RECEIVED PT IN BED, LETHARGIC, AROUSABLE TO TOUCH AND TACTILE STIMULI. ON RA, BREATHING EVEN AND UNLABORED, PT ATTACHED TO EXTERNAL RECYCLING DIRECTOR. SUKHI ML ON SL, NO S/SX OF INFX NOTED. NGT IN PLACED, PATENT AND SECURED, CURRENTLY RUNNING JEVITY 1.2 @ 50ML/HR, WELL MONICA, NO N/V. ASPIRATION PRECAUTION OBSERVED, HOB ELEVATED. DROPLET/AIRBORNE PRECAUTION OBSERVED AT ALL TIME. SAFETY PRECAUTION IMPLEMENTED. CALL LIGHT WITHIN EASY REACH. WILL CONT POC
[2022-12-20 20:00] VITALS: BP 129/81
[2022-12-21] VITALS: BP 130/69
[2022-12-21] MEDS: ACETAMINOPHEN 325 MG TABLET PO PRN (02:50)
[2022-12-21 04:00] VITALS: BP 132/73
[2022-12-21 05:56] LABS: BILIRUBIN,URINE NEGATIVE (NEGATIVE); COLOR,URINE YELLOW (YELLOW); LEUKOCYTE ESTERASE ,URINE NEGATIVE (NEGATIVE); NITRITE, URINE POSITIVE (NEGATIVE); PROTEIN,URINE TRACE mg/dl (NEGATIVE); UGLUCOSE 1+ mg/dL (NEGATIVE)
[2022-12-21 06:18] LABS: BACTERIA,URINE Many /HPF (None Seen); RBC,URINE 0-2 /HPF (0-2); SQUAMOUS EPITHELIAL CELL,UR Rare /HPF (None Seen); WBC,URINE 0-2 /HPF (0-3)
[2022-12-21 06:22] LABS: BASOPHILS # (AUTO) 0.1 K/uL (0.0-0.2); BASOPHILS % (AUTO) 0.5 % (0.0-2.0); EOSINOPHILS % (AUTO) 5.5 % (0.0-6.0); HEMATOCRIT 31 % (39-51); HEMOGLOBIN 10.1 g/dL (13.5-17.5); LYMPHOCYTES % (AUTO) 9.3 % (20.0-44.0); MEAN CORPUSCULAR HGB CONC 33 g/dl (31.0-36.0); MEAN CORPUSCULAR VOLUME 78 fL (80-96); MONOCYTES # (AUTO) 0.9 K/uL (0.1-1.30); MONOCYTES % (AUTO) 7.8 % (2.0-12.0); NEUTROPHILS # (AUTO) 8.6 K/uL (1.8-8.9); NEUTROPHILS % (AUTO) 76.9 % (43.0-81.0); PLATELET COUNT (AUTO) 396 K/uL (150-450); WHITE BLOOD COUNT (AUTO) 11.2 K/uL (4.3-11.0)
[2022-12-21 06:43] LABS: CALCIUM, SERUM 8.3 mg/dL (8.5-10.1); CREATININE 0.6 mg/dL (0.6-1.3); POTASSIUM 3.5 mmol/L (3.5-5.1)
--- NOTE | 2022-12-21 06:45 | NUR ---
RN NOTE PT REMAINS IN STABLE CONDITION, NO SIGNIFICANT CHANGES NOTED. CURRENTLY SLEEPING, EASILY AROUSBALE BY VERBAL/TACTILE STIMULI. REMAINS ON RA, BREATHING EVEN AND UNLABORED, NOTED WITH CONGESTION, ORAL SUCTION PRN. SUKHI ML PATENT, NO S/SX OF INFX. ALL NEEDS ATTENDED. KEPT PT CLEAN, DRY AND COMFORTABLE. ALL NEEDS ANTICIPATED. B SOFT WRIST RESTRAINTS IN PLACED, SKIN ASSESSMENT DONE. HOB ELEVATED. ISOLATION PRECAUTION OBSERVED AT ALL TIMES. WILL ENDORSE TO AM SHIFT
[2022-12-21] MEDS: BLOOD SUGAR DIAGNOSTIC 1 EACH STRIP IN SCH ×3 (06:57→17:41)
[2022-12-21] MEDS: INSULIN REGULAR, HUMAN 100 UNIT/ML 3 ML VIAL SQ PRN ×3 (06:58→17:43)
--- NOTE | 2022-12-21 07:36 | NUR ---
CITY PLANNING ENGINEER OPENING NOTES: RECEIVED PATIENT IN BED, ASLEEP BUT EASILY RESPOND TO VERBAL AND TACTILE STIMULI. PATIENT IS ALERT BUT WITH CONFUSION. NO RESPIRATORY DISTRESS NOTED, ON RA WITH OXYGEN SATURATION OF 98%. ON SR PER TELE MONITOR . HAS IV ACSESS RIGHT UPPER ARM MIDLINE, NO REDNESS NOTED ON THE SITE. DRESSING INTACT, CLEAN AND DRY. PATIENT WITH BILATERAL SOFT WRIST RESTRAINTS, NOTED WITH GOOD HAND CIRCULATION AND GOOD CAPILLARY REFILL, WILL RELEASE AND EXERCISE EXTREMITIES ORDERED. PATIENT HAS NG TUBE FEEDING OF jALL SAFETY MEASURES IN PLACE. BED LOCKED AND IN LOWEST POSITION WITH BED ALARM ON. CALL LIGHT WITHIN REACH. WILL CONTINUE TO MONITOR PATIENT THROUGHOUT SHIFT. Addendum: 12/21/22 at 0739 by ALINA ISABEL RN MARTHA TUVE JEVITY RUNNING AT 50 ML/HR
[2022-12-21 08:00] VITALS: BP 138/70
[2022-12-21] MEDS: QUETIAPINE FUMARATE 25 MG TABLET PO SCH ×2 (08:28→16:30)
[2022-12-21] MEDS: AMLODIPINE BESYLATE 5 MG TABLET PO SCH (08:28)
[2022-12-21] MEDS: PANTOPRAZOLE 40 MG/PACK PACK GT SCH (11:31)
[2022-12-21 12:05] VITALS: BP 137/81
[2022-12-21] MEDS: LORAZEPAM INJ 2 MG/ML VIAL IV PRN ×2 (14:48→23:57)
[2022-12-21] MEDS: JEVITY 1.2 CAL 1,000 ML BOTTLE NG PRN (15:31)
[2022-12-21] MEDS: IV NS 0.9% 1,000 ML IV SCH (15:41)
[2022-12-21 16:18] VITALS: BP 139/80
--- NOTE | 2022-12-21 18:33 | NUR ---
RN CLOSING NOTE PATIENT IN BED, ASLEEP BUT EASILY RESPOND TO VERBAL AND TACTILE STIMULI. PATIENT IS ALERT , CONFUSED. NO RESPIRATORY DISTRESS NOTED, ON RA WITH OXYGEN SATURATION OF 98%. ON ST PER TELE MONITOR 116-136 . HAS IV ACSESS RIGHT UPPER ARM MIDLINE, NO REDNESS NOTED ON THE SITE WITH NS RUNNING AT 50 ML/HR DRESSING INTACT, CLEAN AND DRY. PATIENT WITH BILATERAL SOFT WRIST RESTRAINTS, NOTED WITH GOOD HAND CIRCULATION AND GOOD CAPILLARY REFILL, RESTRAINERS WERE RELEASE AND EXERCISE EXTREMITIES ORDERED. PATIENT HAS NG TUBE FEEDING OF JEVITY 50 ML/HR SAFETY MEASURES IN PLACE. BED LOCKED AND IN LOWEST POSITION WITH BED ALARM ON. CALL LIGHT WITHIN REACH. ALL MEDICATIONS WERE ADMINISTERED , ALL NEEDS WERE MET.WILL ENDORSE NATURAL FABRICATOR NURSE TO CONTINUE WITH POC
--- NOTE | 2022-12-21 19:35 | NUR ---
HYDRAULIC ASSEMBLER NOTES PT IN BED, ASLEEP BUT EASY TO AROUSE, ON RA WITH O2 SAT OF 98%, NO SOB/DISTRESS NOTED. ON TELE ST WITH HR OF 125. IV ACCESS ON RIGHT UA MIDLINE INTACT AND PATENT, NS INFUSING @ 50 ML/HR. HAS LEFT FOREHEAD LACERATION DRY AND INTACT. NGTF RUNNING JEVITY 1.2 @ 50 ML/HR, INTACT ON LEFT NARE, NO RESIDUAL NOTED, FLUSHES WELL. WITH BILATERAL SOFT WRIST RESTARINTS IN PLACE, CIRCULATION CHECK Q2H.SAFETY MEASURES IN PLACE: BED LOCKED AND IN LOWEST POSITION WITH BED ALARM ON, HOB KEPT ELEVATED, SIDE RAILS UP X3, CALL LIGHT WITHIN REACH. WILL CONTINUE TO MONITOR.
[2022-12-21 20:00] VITALS: BP 148/74
[2022-12-22] VITALS: BP 158/94
[2022-12-22] MEDS: BLOOD SUGAR DIAGNOSTIC 1 EACH STRIP IN SCH ×5 (00:16→23:27)
[2022-12-22] MEDS: INSULIN REGULAR, HUMAN 100 UNIT/ML 3 ML VIAL SQ PRN ×4 (00:18→23:28)
[2022-12-22 04:00] VITALS: BP 148/79
--- NOTE | 2022-12-22 06:54 | NUR ---
RN NOTE PT REMAINS IN STABLE CONDITION, NO SIGNIFICANT CHANGES NOTED. CURRENTLY SLEEPING, EASILY AROUSBALE BY VERBAL/TACTILE STIMULI. REMAINS ON RA, BREATHING EVEN AND UNLABORED, NOTED WITH CONGESTION, ORAL SUCTION PRN. SUKHI ML PATENT, NO S/SX OF INFX. NPO MIDNIGHT FOR PEG INSERTION. ALL NEEDS ATTENDED. KEPT PT CLEAN, DRY AND COMFORTABLE. ALL NEEDS ANTICIPATED. B SOFT WRIST RESTRAINTS IN PLACED, SKIN ASSESSMENT DONE. HOB ELEVATED. ISOLATION PRECAUTION OBSERVED AT ALL TIMES. WILL ENDORSE TO AM SHIFT
--- NOTE | 2022-12-22 07:17 | NUR ---
TELEX OPERATOR OPENING NOTES: RECEIVED PATIENT IN BED, ASLEEP BUT EASILY AROUSES TO VOICE AND TACTILE STIMULI. PATIENT OPENS HIS EYES BUT IS NON VERBAL. NO RESPIRATORY DISTRESS NOTED, BREATHING EVEN AND UNLABORED. ON RA WITH OXYGEN SATURATION OF 100%. ON ST WITH HR OF 110 PER TELE MONITOR. PATIENT HAS IV ON RIGHT UPPER ARM MIDLINE, RUNNING WITH IV FLUID OF NS @ 50 ML/HR, NO S/S INFILTRATION AND NO REDNESS NOTED ON THE SITE. NGT IN PLACE ON LEFT NARE, INTACT, FLUSHES WELL. PATIENT REMAINS ON NPO FOR PEG PLACEMENT. DRESSING ON LEFT FOREHEAD INTACT, DRESSING CLEAN AND DRY. PATIENT WITH BILATERAL SOFT WRIST RESTRAINTS APPLIED FOR SAFETY, NOTED WITH GOOD HAND CIRCULATION AND GOOD CAPILLARY REFILL. ALL SAFETY MEASURES IN PLACE. BED LOCKED AND IN LOWEST POSITION WITH BED ALARM ON. CALL LIGHT WITHIN REACH. WILL CONTINUE TO MONITOR PATIENT THROUGHOUT SHIFT.
--- NOTE | 2022-12-22 07:19 | NUR ---
consent obtained from son hemal for peg witnessed by another rn.
[2022-12-22 08:00] VITALS: BP 151/87
[2022-12-22] MEDS: AMLODIPINE BESYLATE 5 MG TABLET PO SCH (08:21)
[2022-12-22] MEDS: QUETIAPINE FUMARATE 25 MG TABLET PO SCH ×2 (08:35→17:00)
--- NOTE | 2022-12-22 09:15 | NUR ---
DR. MURPHY CAME BY AND NOTIFIED HIM THAT NURSE HAS NOTICED GURGLING SOUND AND MD ORDERED DEEP SUCTIONING BY RT. ORDER NOTED AND CARRIED OUT. RT INFORMED. HOB KEPT ELEVATED AT ALL TIMES.
--- NOTE | 2022-12-22 11:49 | NUR ---
BROUGHT COVID SAMPLE TO THE LAB FOR TESTING.
[2022-12-22 12:00] VITALS: BP 126/82
[2022-12-22] MEDS: PANTOPRAZOLE 40 MG/PACK PACK GT SCH (12:12)
[2022-12-22] MEDS: IV NS 0.9% 1,000 ML IV SCH (12:13)
--- NOTE | 2022-12-22 13:44 | NUR ---
PATIENT WAS PICKED UP BY TWO NURSES FOR PEG PLACEMENT. CHECKED PATIENT'S BLOOD SUGAR AND IT WAS 147 MG/DL. PATIENT LEFT IN NO ACUTE DISTRESS VIA PATIENT'S BED.
--- NOTE | 2022-12-22 13:51 | NUR ---
covid rapid negative per dr. salas nix to discontinue isolation.
[2022-12-22] MEDS ORDERED: LABETALOL HCL IV 100MG VIAL ONE (15:01)
--- NOTE | 2022-12-22 15:25 | NUR ---
PATIENT'S BACK IN THE ROOM IN NO ACUTE DISTRESS POST PEG-TUBE PLACEMENT. ABDOMINAL BINDER ON, CLEAN DRY AND INTACT. NURSE STATED TO HOLD THE FEEDING TODAY AND TO RESTART FEEDING TOMORROW. PATIENT IS ASLEEP BUT EASILY AROUSES, NO S/S PAIN OR DISCOMFORT AT THIS TIME. HEART MONITOR WAS PLACED BACK ON THE PATIENT.
[2022-12-22 16:00] VITALS: BP 142/64
--- NOTE | 2022-12-22 18:59 | NUR ---
CARD DEALER CLOSING NOTES: PATIENT ASLEEP IN BED, BUT EASILY AROUSES TO VOICE AND SOUND. PATIENT RAMINS STABLE THROUGHOUT SHIFT. NO RESPIRATORY DISTRESS NOTED THE ENTIRE SHIFT. ON RA WITH OXYGEN SATURATION OF 100%. ON ST WITH HR OF 105 PER TELE MONITOR. PATIENT HAS IV ON RIGHT UPPER ARM MIDLINE, RUNNING WITH IV FLUID OF NS @ 50 ML/HR, NO S/S INFILTRATION AND NO REDNESS NOTED ON THE SITE. ABDOMINAL NINDER INTACT, NO BLEEDING NOTED. PATIENT REMAINS ON NPO ORDERED BY MD AND FEEDING TO BE STARTED TOMORROW. DRESSING ON LEFT FOREHEAD INTACT, DRESSING CLEAN AND DRY. PATIENT WITH BILATERAL SOFT WRIST RESTRAINTS APPLIED FOR SAFETY, NOTED WITH GOOD HAND CIRCULATION AND WITH GOOD CAPILLARY REFILL. ALL SAFETY MEASURES IMPLEMENTED. BED LOCKED AND IN LOWEST POSITION WITH BED ALARM ON. CALL LIGHT WITHIN REACH. WILL ENDORSE TO INCOMING NURSE FOR CONTINUITY OF CARE.
--- NOTE | 2022-12-22 19:30 | NUR ---
RN NOTES PT IN BED, ASLEEP BUT EASY TO AROUSE, ON RA WITH O2 SAT OF 98%, NO SOB/DISTRESS NOTED. ON TELE ST WITH HR OF 110. IV ACCESS ON RIGHT UA MIDLINE INTACT AND PATENT, NS INFUSING @ 50 ML/HR. HAS LEFT FOREHEAD LACERATION DRY AND INTACT. GT INTACT NO BLEEDING NOTED WILL RESUME FEEDING IN THE MORNING WITH BILATERAL SOFT WRIST RESTRAINTS IN PLACE, CIRCULATION CHECK Q2H.SAFETY MEASURES IN PLACE: BED LOCKED AND IN LOWEST POSITION WITH BED ALARM ON, HOB KEPT ELEVATED, SIDE RAILS UP X3, CALL LIGHT WITHIN REACH. WILL CONTINUE TO MONITOR.
[2022-12-22 20:00] VITALS: BP 141/80
[2022-12-23] VITALS: BP 149/73
[2022-12-23 04:00] VITALS: BP 153/87
[2022-12-23] MEDS: INSULIN REGULAR, HUMAN 100 UNIT/ML 3 ML VIAL SQ PRN ×3 (05:20→23:28)
[2022-12-23] MEDS: BLOOD SUGAR DIAGNOSTIC 1 EACH STRIP IN SCH ×4 (05:20→23:28)
--- NOTE | 2022-12-23 06:46 | NUR ---
RN NOTE PT REMAINS IN STABLE CONDITION, NO SIGNIFICANT CHANGES NOTED. CURRENTLY SLEEPING, EASILY [place] BY VERBAL/TACTILE STIMULI. REMAINS ON RA, BREATHING EVEN AND UNLABORED, NOTED WITH CONGESTION, ORAL SUCTION PRN. SUKHI ML PATENT, NO S/SX OF INFX RUNNING NS @ 50CC/HR STILL NPO WILL RESUME FEEDING IN THE MORNING. ALL NEEDS ATTENDED. KEPT PT CLEAN, DRY AND COMFORTABLE. ALL NEEDS ANTICIPATED. B SOFT WRIST RESTRAINTS IN PLACED, SKIN ASSESSMENT DONE. HOB ELEVATED. ISOLATION PRECAUTION OBSERVED AT ALL TIMES. WILL ENDORSE TO AM SHIFT
[2022-12-23 06:53] LABS: BASOPHILS % (AUTO) 0.3 % (0.0-2.0); EOSINOPHILS % (AUTO) 1.2 % (0.0-6.0); HEMATOCRIT 27 % (39-51); HEMOGLOBIN 8.8 g/dL (13.5-17.5); LYMPHOCYTES # (AUTO) 0.7 K/uL (0.8-4.8); LYMPHOCYTES % (AUTO) 4.9 % (20.0-44.0); MEAN CORPUSCULAR HGB CONC 33 g/dl (31.0-36.0); MEAN CORPUSCULAR VOLUME 79 fL (80-96); MONOCYTES # (AUTO) 0.8 K/uL (0.1-1.30); MONOCYTES % (AUTO) 5.6 % (2.0-12.0); PLATELET COUNT (AUTO) 420 K/uL (150-450); RED BLOOD CELL COUNT(AUTO) 3.39 MIL/uL (4.5-6.0); WHITE BLOOD COUNT (AUTO) 14.8 K/uL (4.3-11.0)
[2022-12-23 07:05] LABS: CALCIUM, SERUM 8.5 mg/dL (8.5-10.1); CREATININE 0.4 mg/dL (0.6-1.3); POTASSIUM 3.7 mmol/L (3.5-5.1)
[2022-12-23] MEDS: IV NS 0.9% 1,000 ML IV SCH (07:25)
--- NOTE | 2022-12-23 07:30 | NUR ---
RN NOTE RECEIVED PATIENT IN BED RESTING,EYES CLOSED,RESPONSIVE BY PAIN STIMULI,ON ROOM AIR O2:98% IV SITE IS ON RIGHT UPPER ARM MID LINE HARD TO FLUSH,MAKE A NEW IV LINE ON LEFT FOREARM #22 INTACT PATENT,ON IV HYDRATION NS 50CC/HR,GT IN PLACE CHECKED PLACEMENT IN PLACE NO RESIDUAL NOTED,SAFETY MEASURE IMPLEMENT BED IN LOW POSITION AND LOCKED,SOFT BILATERAL WRISTS RESTRAINS IN PLACE,WILL CHECK EVERY 15 MINS FOR SKIN BREAK DOWN AND CIRCULATION,HEAD OF THE BED ELEVATED CONTINUE TO MONITOR.
[2022-12-23 08:00] VITALS: BP 136/84
[2022-12-23] MEDS: QUETIAPINE FUMARATE 25 MG TABLET PO SCH ×3 (09:00→16:17)
[2022-12-23] MEDS: AMLODIPINE BESYLATE 5 MG TABLET PO SCH (09:05)
[2022-12-23] MEDS: JEVITY 1.2 CAL 1,000 ML BOTTLE NG PRN (11:01)
--- NOTE | 2022-12-23 11:01 | NUR ---
RN NOTE STARTED TUBE FEEDING JEVITY 1.2,STARTS 20 CC/HR AND GRADUALLY INCREASE TO REACH GOAL 50CC/HR.
[2022-12-23] MEDS: PANTOPRAZOLE 40 MG/PACK PACK GT SCH (11:02)
[2022-12-23 12:00] VITALS: BP 135/77
[2022-12-23 16:00] VITALS: BP 141/82
--- NOTE | 2022-12-23 18:16 | NUR ---
RN NOTE PATIENT REMAINS CLOSED EYES,RESPONSIVE TO PAIN STIMULI,ON ROOM AIR NO SOB NOT ACUTE DISTRESS NOTED,ON G-TUBE FEEDING JEVITY 1.2,TOLERATED WELL,ALL DUE MEDS GIVEN MD ORDERED KEPT CLEAN AND DRY ALL THE TIME,TURNED AND REPOSITIONED EVERY 2 HOURS,SOFT BILATERAL WRIST RESTRAINS IN PLACE CHECKED EVERY 15 MINS FOR SKIN BREAKDOWN AND CALCULATION,ON NS 50CC/HR,KEPT HEAD OF THE BED ELEVATED,ENDORSE NEXT COMING SHIFT FOR CONTINUATION OF CARE.
--- NOTE | 2022-12-23 19:30 | NUR ---
COMMERCIAL REAL ESTATE BROKER OPENING NOTE RECEIVED PATIENT IN BED, ASLEEP. ALERT AND ORIENTED X1. AFEBRILE AND NOT IN ANY FORM OF ACUTE DISTRESS. BREATHING EVEN AND NON LABORED. ON TELE MONITORING WITH CURRENT READING OF ST 105. WITH G-TUBE, INTACT, WITH ONGOING FEEDING OF JEVITY 1.2 AT 50ML/HR. WITH IV ACCESS ON LFA 22G RUNNING WITH NS AT 50CC/HR. ON BILATERAL SOFT WRIST RESTRAINTS, NOTED WITH INTACT SKIN AND GOOD CIRCULATION IN THE AREA. SAFETY MEASURES IN PLACE.KEPT BED IN LOCKED AND IN LOW POSITION. SIDE RAILS UP X2. CALL LIGHT WITHIN EASY REACH.
[2022-12-23 20:00] VITALS: BP 118/75
[2022-12-24] VITALS: BP 145/88
[2022-12-24 04:00] VITALS: BP 141/81
[2022-12-24] MEDS: IV NS 0.9% 1,000 ML IV SCH (04:01)
[2022-12-24] MEDS: BLOOD SUGAR DIAGNOSTIC 1 EACH STRIP IN SCH ×4 (05:37→23:33)
[2022-12-24] MEDS: INSULIN REGULAR, HUMAN 100 UNIT/ML 3 ML VIAL SQ PRN ×3 (05:39→23:34)
--- NOTE | 2022-12-24 06:30 | NUR ---
CHEF GERMAN CLOSING NOTE PATIENT IN BED, WITH HOB ELEVATED, ASLEEP. AFEBRILE AND NOT IN ANY FORM OF ACUTE DISTRESS. BREATHING EVEN AND NON LABORED. ON TELE MONITORING WITH CURRENT READING OF ST 120. WITH G-TUBE, INTACT, WITH ONGOING FEEDING OF JEVITY 1.2 AT 50ML/HR. WITH IV ACCESS ON LFA 22G RUNNING WITH NS AT 50CC/HR. ON BILATERAL SOFT WRIST RESTRAINTS, NOTED WITH INTACT SKIN AND GOOD CIRCULATION IN THE AREA. MONITORED FOR ANY S/SX. OF HYPO/HYPERGLYCEMIA. MEDICATED ORDERED. TURNED AND REPOSITIONED EVERY 2 HOURS AND TOLERATED TO PROMOTE PROPER CIRCULATION AND COMFORT BY ASSIGNED STAFF. SAFETY MEASURES IN PLACE.KEPT BED IN LOCKED AND IN LOW POSITION. SIDE RAILS UP X2. CALL LIGHT WITHIN EASY REACH. ALL NURSING NEEDS ATTENDED. ENDORSED TO INCOMING SHIFT FOR CONTINUITY OF CARE.
--- NOTE | 2022-12-24 07:30 | NUR ---
CRUISE AGENT AM NOTE PATIENT IN BED, ASLEEP. ALERT AND ORIENTED X1. YI SPEAKING. AFEBRILE. ON ROOM AIR. NO ACUTE DISTRESS. RESPIRATION UNLABORED. ST 105 HR 120 ON MONITOR. NO SIGNS OF PAIN OR DISCOMFORT. WITH G-TUBE, ONGOING FEEDING OF JEVITY 1.2 AT 25 ML/HR GOAL OF 50ML/HR. CHECKED FOR PLACEMENT. O RESIDUAL. WITH IV ACCESS ON LFA 22G RUNNING WITH NS AT 50CC/HR. SITE CLEAR. SEE NURSING FLOWSHEET FOR SKIN ISSUES. ON BILATERAL SOFT WRIST RESTRAINTS, IN PLACED. RELEASED AND CHECKED FOR CIRCULATION THEN Q [address] MEASURES IN PLACE.KEPT BED IN LOCKED AND IN LOW POSITION. SIDE RAILS UP X2. CALL LIGHT WITHIN REACH. WILL CONTINUE TO MONITOR.
[2022-12-24 08:00] VITALS: BP 149/87
[2022-12-24] MEDS: QUETIAPINE FUMARATE 25 MG TABLET PO SCH ×2 (08:53→16:26)
[2022-12-24] MEDS: AMLODIPINE BESYLATE 5 MG TABLET PO SCH (08:53)
--- NOTE | 2022-12-24 09:30 | NUR ---
RN NOTES DUE MEDS GIVEN
[2022-12-24 11:14] LABS: BASOPHILS % (AUTO) 0.1 % (0.0-2.0); EOSINOPHILS % (AUTO) 0.6 % (0.0-6.0); HEMATOCRIT 25 % (39-51); LYMPHOCYTES # (AUTO) 0.7 K/uL (0.8-4.8); MEAN CORPUSCULAR HGB CONC 33 g/dl (31.0-36.0); MEAN CORPUSCULAR VOLUME 80 fL (80-96); MONOCYTES # (AUTO) 0.9 K/uL (0.1-1.30); NEUTROPHILS # (AUTO) 9.8 K/uL (1.8-8.9); NEUTROPHILS % (AUTO) 85.3 % (43.0-81.0); PLATELET COUNT (AUTO) 390 K/uL (150-450); WHITE BLOOD COUNT (AUTO) 11.5 K/uL (4.3-11.0)
[2022-12-24 11:26] LABS: CALCIUM, SERUM 8.1 mg/dL (8.5-10.1); CREATININE 0.4 mg/dL (0.6-1.3); POTASSIUM 3.4 mmol/L (3.5-5.1)
[2022-12-24 12:00] VITALS: BP 130/72
[2022-12-24] MEDS: PANTOPRAZOLE 40 MG/PACK PACK GT SCH (12:02)
[2022-12-24] MEDS: GLUCERNA 1.2 1,000 ML BOTTLE NG PRN (13:20)
[2022-12-24 16:00] VITALS: BP 118/85
--- NOTE | 2022-12-24 18:32 | NUR ---
CREDIT COUNSELOR CLOSING NOTE PATIENT IN BED, ASLEEP. ALERT AND ORIENTED X1. ROMANSH SPEAKING. AFEBRILE. ON ROOM AIR. NO ACUTE DISTRESS. RESPIRATION UNLABORED. ST HR 117 ON MONITOR. NO SIGNS OF PAIN OR DISCOMFORT. WITH G-TUBE, ONGOING FEEDING OF GLUCERNA 1.2 AT 40 ML/HR GOAL OF 50ML/HR. CHECKED FOR PLACEMENT. 5 ML RESIDUAL. WITH IV ACCESS ON LFA 22G RUNNING WITH NS AT 50CC/HR. SITE CLEAR. ON BILATERAL SOFT WRIST RESTRAINTS, IN PLACED. RELEASED AND CHECKED FOR CIRCULATION THEN Q [address] MEASURES IN PLACE.KEPT BED IN LOCKED AND IN LOW POSITION. SIDE RAILS UP X2. CALL LIGHT WITHIN REACH. TURNED AND REPOSITIONED Q 2 HOURS. PM CARE DONE EALIER. ALL NEEDS MET WILL ENDORSE TO NEXT SHIFT FOR BLAKE.
--- NOTE | 2022-12-24 19:30 | NUR ---
SMOKING TOBACCO CUTTER OPERATOR OPENING NOTE RECEIVED PATIENT IN BED, ASLEEP. CURRENTLY ON RA, TOLERATING WELL, SATING @ 98%. NO S/SX OF ACUTE RESPI DISTRESS NOTED AT THIS TIME. BREATHING IS EVEN AND UNLABORED. ON TELE MONITORING WITH CURRENT READING OF ST, HR >100.IV ACCESS ON LFA, 22G, PATENT AND INTACT, SL ONLY. BILATERAL SOFT WRIST RESTRAINTS NOTED WITH INTACT SKIN AND GOOD CIRCULATION. G-TUBE IN PLACE, INTACT, WITH ONGOING FEEDING OF JEVITY 1.2 AT 45 ML/HR. ALL SAFETY MEASURES IN PLACE: BED LOCKED AND IN LOW POSITION, BED ALARM ON, SIDE RAILS UP X2. CALL LIGHT WITHIN EASY REACH. WILL CONTINUE TO MONITOR PT.
[2022-12-24 20:00] VITALS: BP 140/77
[2022-12-25] VITALS: BP 122/75
[2022-12-25 04:00] VITALS: BP 118/95
[2022-12-25] MEDS: BLOOD SUGAR DIAGNOSTIC 1 EACH STRIP IN SCH ×3 (05:24→17:12)
[2022-12-25] MEDS: INSULIN REGULAR, HUMAN 100 UNIT/ML 3 ML VIAL SQ PRN ×3 (05:30→17:15)
[2022-12-25 06:17] LABS: BASOPHILS % (AUTO) 0.2 % (0.0-2.0); EOSINOPHILS % (AUTO) 1.3 % (0.0-6.0); HEMATOCRIT 29 % (39-51); HEMOGLOBIN 9.4 g/dL (13.5-17.5); LYMPHOCYTES # (AUTO) 0.7 K/uL (0.8-4.8); LYMPHOCYTES % (AUTO) 6.8 % (20.0-44.0); MEAN CORPUSCULAR HGB CONC 32 g/dl (31.0-36.0); MEAN CORPUSCULAR VOLUME 80 fL (80-96); MONOCYTES # (AUTO) 0.9 K/uL (0.1-1.30); MONOCYTES % (AUTO) 8.1 % (2.0-12.0); NEUTROPHILS # (AUTO) 8.9 K/uL (1.8-8.9); NEUTROPHILS % (AUTO) 83.6 % (43.0-81.0); PLATELET COUNT (AUTO) 536 K/uL (150-450); RED BLOOD CELL COUNT(AUTO) 3.66 MIL/uL (4.5-6.0); WHITE BLOOD COUNT (AUTO) 10.7 K/uL (4.3-11.0)
--- NOTE | 2022-12-25 06:20 | NUR ---
RN NOTE NO SIGNIFICANT CHANGE T/O THE NIGHT. DUE MEDS GIVEN. NEEDS MET. TURNED AND REPOSITIONED. WILL ENDORSE TO AM SHIFT NURSE FOR BLKAE.
[2022-12-25 06:23] LABS: CALCIUM, SERUM 8.9 mg/dL (8.5-10.1); CREATININE 0.5 mg/dL (0.6-1.3); POTASSIUM 3.5 mmol/L (3.5-5.1)
--- NOTE | 2022-12-25 07:30 | NUR ---
ENGINEERING DIRECTOR AM NOTE PATIENT IN BED, ASLEEP. ALERT AND ORIENTED X1. BENGALI SPEAKING. AFEBRILE. ON ROOM AIR. NO ACUTE DISTRESS. RESPIRATION UNLABORED. ST HR 105 ON MONITOR. NO SIGNS OF PAIN OR DISCOMFORT. WITH G-TUBE, ONGOING FEEDING OF GLUCERNA 1.2 AT 55 ML/HR. CHECKED FOR PLACEMENT. O RESIDUAL. WITH IV ACCESS ON LFA 22G FLUSHES WELL. SITE CLEAR. SEE NURSING FLOWSHEET FOR SKIN ISSUES. ON BILATERAL SOFT WRIST RESTRAINTS, IN PLACED. RELEASED AND CHECKED FOR CIRCULATION THEN Q [address] MEASURES IN PLACE.KEPT BED IN LOCKED AND IN LOW POSITION. SIDE RAILS UP X2. CALL LIGHT WITHIN REACH. WILL CONTINUE TO MONITOR.
[2022-12-25 08:00] VITALS: BP 151/93
[2022-12-25] MEDS: QUETIAPINE FUMARATE 25 MG TABLET PO SCH ×2 (08:40→17:14)
[2022-12-25] MEDS: AMLODIPINE BESYLATE 5 MG TABLET PO SCH (08:40)
--- NOTE | 2022-12-25 09:30 | NUR ---
RN NOTES DUE MEDS GIVEN
[2022-12-25] MEDS: PANTOPRAZOLE 40 MG/PACK PACK GT SCH (11:59)
[2022-12-25 12:00] VITALS: BP 126/68
[2022-12-25 16:00] VITALS: BP 136/85
[2022-12-25] MEDS: ACETAMINOPHEN 325 MG TABLET PO PRN (17:14)
--- NOTE | 2022-12-25 18:33 | NUR ---
DEVELOPMENTAL SPECIALIST CLOSING NOTE PATIENT IN BED, ASLEEP. ALERT AND ORIENTED X1. YORUBA SPEAKING. AFEBRILE. ON ROOM AIR. NO ACUTE DISTRESS. RESPIRATION UNLABORED. ST HR 120 ON MONITOR. NO SIGNS OF PAIN OR DISCOMFORT. WITH G-TUBE, ONGOING FEEDING OF GLUCERNA 1.2 AT 55 ML/HR. CHECKED FOR PLACEMENT. 5 ML RESIDUAL. WITH IV ACCESS ON LFA 22G FLUSHES WELL SITE CLEAR. ON BILATERAL SOFT WRIST RESTRAINTS, IN PLACED. RELEASED AND CHECKED FOR CIRCULATION THEN Q [address] MEASURES IN PLACE.KEPT BED IN LOCKED AND IN LOW POSITION. SIDE RAILS UP X2. CALL LIGHT WITHIN REACH. TURNED AND REPOSITIONED Q 2 HOURS. PM CARE DONE EARLIER. ALL NEEDS MET WILL ENDORSE TO NEXT SHIFT FOR BLAKE.
--- NOTE | 2022-12-25 19:30 | NUR ---
STARCH FACTORY LABORER OPENING NOTE RECEIVED PATIENT IN BED, ASLEEP. CURRENTLY ON RA, TOLERATING WELL, SATING @ >95%. NO S/SX OF ACUTE RESPI DISTRESS NOTED AT THIS TIME. BREATHING IS EVEN AND UNLABORED. ON TELE MONITORING WITH CURRENT READING OF ST, HR >100. IV ACCESS ON LFA, 22G, PATENT AND INTACT, SL ONLY. BILATERAL SOFT WRIST RESTRAINTS NOTED WITH INTACT SKIN AND GOOD CIRCULATION. G-TUBE IN PLACE, INTACT, WITH ONGOING FEEDING OF GLUCERNA 1.2 AT 55 ML/HR. NO RESIDUAL NOTED. ALL SAFETY MEASURES IN PLACE: BED LOCKED AND IN LOW POSITION, BED ALARM ON, SIDE RAILS UP X2. CALL LIGHT WITHIN EASY REACH. WILL CONTINUE TO MONITOR PT.
[2022-12-25] MEDS: HYDROCODONE/APAP 5/325MG TABLET PO PRN (19:41)
[2022-12-25 20:00] VITALS: BP 109/64
[2022-12-26] VITALS: BP 114/66
[2022-12-26] MEDS: BLOOD SUGAR DIAGNOSTIC 1 EACH STRIP IN SCH ×3 (00:23→12:00)
[2022-12-26] MEDS: INSULIN REGULAR, HUMAN 100 UNIT/ML 3 ML VIAL SQ PRN ×3 (00:24→13:37)
[2022-12-26 04:00] VITALS: BP 118/70
[2022-12-26] MEDS: GLUCERNA 1.2 1,000 ML BOTTLE NG PRN (04:29)
--- NOTE | 2022-12-26 06:10 | NUR ---
RN NOTE NO SIGNIFICANT CHANGE T/O THE NIGHT. PT STILL SINUS TACH ON MORTICIAN HELPER. GIVEN NORCO ONE TIME FOR PAIN. NO RESPI DISTRESS NOTED THE WHOLE NIGHT. ALL DUE MEDS GIVEN. NEEDS MET. TURNED AND REPOSITIONED. WILL ENDORSE TO AM SHIFT NURSE FOR BLAKE.
[2022-12-26] MEDS: HYDROCODONE/APAP 5/325MG TABLET PO PRN (06:36)
--- NOTE | 2022-12-26 06:40 | NUR ---
RN NOTE PT SAID HE IS IN PAIN. NO OTHER SIGNS OF DISTRESS NOTED. NORCO GIVEN ORDERED. WILL ENDORSE TO AM SHIFT FOR REASSESSMENT.
[2022-12-26 07:18] LABS: BASOPHILS % (AUTO) 0.1 % (0.0-2.0); HEMATOCRIT 28 % (39-51); HEMOGLOBIN 8.9 g/dL (13.5-17.5); LYMPHOCYTES # (AUTO) 0.9 K/uL (0.8-4.8); LYMPHOCYTES % (AUTO) 6.5 % (20.0-44.0); MEAN CORPUSCULAR HGB CONC 32 g/dl (31.0-36.0); MEAN CORPUSCULAR VOLUME 81 fL (80-96); MONOCYTES # (AUTO) 0.8 K/uL (0.1-1.30); MONOCYTES % (AUTO) 5.5 % (2.0-12.0); NEUTROPHILS # (AUTO) 11.9 K/uL (1.8-8.9); NEUTROPHILS % (AUTO) 85.9 % (43.0-81.0); PLATELET COUNT (AUTO) 501 K/uL (150-450); RED BLOOD CELL COUNT(AUTO) 3.43 MIL/uL (4.5-6.0); WHITE BLOOD COUNT (AUTO) 13.9 K/uL (4.3-11.0)
[2022-12-26 07:50] LABS: CALCIUM, SERUM 8.6 mg/dL (8.5-10.1); CREATININE 0.6 mg/dL (0.6-1.3); POTASSIUM 3.9 mmol/L (3.5-5.1)
[2022-12-26 08:00] VITALS: BP_SYST 120; BP_SYST 141; BP_DIAS 65; BP_DIAS 79
[2022-12-26] MEDS: AMLODIPINE BESYLATE 5 MG TABLET PO SCH (09:58)
[2022-12-26] MEDS: QUETIAPINE FUMARATE 25 MG TABLET PO SCH ×2 (09:59→16:07)
[2022-12-26 12:00] VITALS: BP 145/70
[2022-12-26] MEDS: PANTOPRAZOLE 40 MG/PACK PACK GT SCH (12:52)
--- NOTE | 2022-12-26 13:05 | NUR ---
PATIENT FAMILY REFUSED DISCHARGE PHOTO TAKEN,ALSO PER MD WALLS TO REMOVE GTUBE PRIOR TO DISCHARGE ,FAMILY REQUESTED HOSPICE IN BOARD AND CARE.
--- NOTE | 2022-12-26 13:25 | NUR ---
DR. MOSER NOTIFIED AND CM NOTIFIED PT. GTUBE IS NOT BALLOON INFLATED.UNABLE TO REMOVE GTUBE.
[2022-12-26] MEDS: LORAZEPAM INJ 2 MG/ML VIAL IV PRN (13:45)
--- NOTE | 2022-12-26 13:52 | NUR ---
report given to EMBER in b/c.
--- NOTE | 2022-12-26 14:31 | NUR ---
ok to dc with peg per md.
== END 2022-12-26 16:50 | disposition hospice, inpatient (51) | DRG 177 ==
LOC: ER 16:35 → MEDSG1 12-14 02:58 → TELE1 12-14 03:56
PROVIDERS: ADMIT Nurse Practitioner Acute Care; ATTEND Internal Medicine
PROC: 0HQ1XZZ Repair Face Skin, External Approach (ICD-10-PCS; principal; 2022-12-14)
PROC: 05HB33Z Insertion of Infusion Device into Right Basilic Vein, Percutaneous Approach (ICD-10-PCS; 2022-12-18)
PROC: 0DH63UZ Insertion of Feeding Device into Stomach, Percutaneous Approach (ICD-10-PCS; 2022-12-22)
PROC: 0DH63UZ Insertion of Feeding Device into Stomach, Percutaneous Approach (ICD-10-PCS; 2022-12-22)
DX: U07.1 COVID-19 (principal); G93.41 Metabolic encephalopathy; J96.01 Acute respiratory failure with hypoxia; I60.12 Nontraumatic subarachnoid hemorrhage from left middle cerebral artery; G93.6 Cerebral edema; J12.82 Pneumonia due to coronavirus disease 2019; C79.31 Secondary malignant neoplasm of brain; E87.1 Hypo-osmolality and hyponatremia; G90.8 Other disorders of autonomic nervous system; Z85.038 Personal history of other malignant neoplasm of large intestine; S01.81XA Laceration without foreign body of other part of head, initial encounter; K29.70 Gastritis, unspecified, without bleeding; Z85.820 Personal history of malignant melanoma of skin; Z92.21 Personal history of antineoplastic chemotherapy; Z86.73 Personal history of transient ischemic attack (TIA), and cerebral infarction without residual deficits; G40.909 Epilepsy, unspecified, not intractable, without status epilepticus; I10 Essential (primary) hypertension; E78.5 Hyperlipidemia, unspecified; E78.00 Pure hypercholesterolemia, unspecified; L80 Vitiligo; Z79.899 Other long term (current) drug therapy; W19.XXXA Unspecified fall, initial encounter; Y92.238 Other place in hospital as the place of occurrence of the external cause; Z79.84 Long term (current) use of oral hypoglycemic drugs; F09 Unspecified mental disorder due to known physiological condition; E11.9 Type 2 diabetes mellitus without complications; E87.6 Hypokalemia; R13.10 Dysphagia, unspecified; R74.01 Elevation of levels of liver transaminase levels; R91.1 Solitary pulmonary nodule; Z51.5 Encounter for palliative care; Z66 Do not resuscitate
CPT/HCPCS: 31720; 36415; 43246; 70450-TC; 71045-TC; 80048-TC; 80076-TC; 81001; 82962-TC; 83735-TC; 83880; 84100-TC; 84300-TC; 84484-TC; 85025-TC; 85378-TC; 85730-TC; 86140-TC; 87081-TC; 87086-TC; 92526; 92611-TC; A4223; A4349; A9563; C9113; C9803; G0378; J1200; J1630; J1815; J2060; J2704; J3480; J3490; J7030; J7042; J7050; U0003